=== PATIENT | female | born 1995 | race Asian ===

== ENCOUNTER 2021-06-15 19:56 | Emergency (ER) | payer OTHER ==
[~2021-06-15] VITALS: Ht 165.1 cm; Wt 58.1 kg
[2021-06-15 20:42] VITALS: BP 113/77
--- NOTE | 2021-06-15 20:49 | NUR ---
PT GIVEN URINE CUP AND SENT TO LOBBY.
--- NOTE | 2021-06-15 21:13 | NUR ---
PT TAKEN TO BED 2.
--- NOTE | 2021-06-15 21:14 | NUR ---
ER MD AT BEDSIDE EXAMINING PT
--- NOTE | 2021-06-15 21:14 | NUR ---
25 Y/O FEMALE BIB SELF, C/O NECK PAIN X3 DAYS. PATIENT PRESENTS TO ED WITH CMS INTACT, NO LOSS OF STRENGTH, MOVEMENT, OR SENSATION. PT STATES FOR THE PAST 3 DAYS SHE HAS HAD NECK PAIN THAT IS WORSE UPON MOVEMENT OF HER HEAD. DENIES N/V/D; SKIN IS PINK/WARM/DRY; AAOX4 WITH EVEN AND STEADY GAIT; PT DENIES ANY FEVER, CP, SOB, OR COUGH AT THIS TIME; PATIENT STATES PAIN OF 10/10 AT THIS TIME; VSS; PATIENT SITTING ON THE EDGE OF THE BED FOR COMFORT. ER MD MADE AWARE OF PT STATUS. DENIES PMH, ALLERGIES, OR MEDS
[2021-06-15] MEDS ORDERED: diazePAM 5 MG TAB PO ONE (21:20)
[2021-06-15 21:58] VITALS: BP 113/77
--- NOTE | 2021-06-15 21:59 | NUR ---
Patient discharged with v/s stable. Written and verbal after care instructions given and explained. Patient verbalized understanding. Ambulatory with steady gait. All questions addressed prior to discharge. Advised to follow up with PMD. VSS, A/OX4, AMBULATORY, UNALBORED BREATHING, AND CALM DEMEANOR.
== END 2021-06-15 21:57 | disposition home or self-care (01) ==
LOC: MED 19:56
DX: M43.6 Torticollis (principal)
CPT/HCPCS: 81002; 81025; 99283